=== PATIENT | male | born 1960 ===

== ENCOUNTER 2025-06-23 10:25 | Day surgery (SDC) | payer OTHER ==
[2025-06-23] MEDS ORDERED: DIPHENHYDRAMINE HCL 50 MG/ML VIAL 1ML IV ONE (12:45)
[2025-06-23] MEDS ORDERED: MIDAZOLAM HCL 2 MG/2 ML VIAL IV ONE (12:45)
[2025-06-23] MEDS ORDERED: fentaNYL CITRATE 50 MCG/ML AMPUL IV PUSH ONE (12:45)
== END 2025-06-23 14:15 | disposition home or self-care (01) ==
LOC: AMB-ENDOS 10:25
PROVIDERS: ATTEND Internal Medicine
DX: D12.4 Benign neoplasm of descending colon (principal); K63.5 Polyp of colon